=== PATIENT | female | born 1945 | race Caucasian/White ===

== ENCOUNTER → 2019-09-22 | Outpatient (CLI) | payer MEDICARE, OTHER ==
--- NOTE | 2019-09-22 11:05 | Diagnostic Imaging Report ---
PROCEDURE: US right lower extremity venous. TECHNIQUE: Multiple real-time grayscale images were obtained over the right lower extremity in various projections. Additional spectral analysis and color Doppler duplex images were also obtained. INDICATION: Right lower extremity pain and edema. COMPARISON: Non available. FINDINGS: The right common femoral, femoral and popliteal veins are patent by color doppler imaging and without DVT. Visualized proximal aspects of the greater saphenous, deep femoral, posterior tibial and peroneal veins are also patent. All of the evaluated deep venous structures demonstrate normal compressibility and waveform augmentation where applicable. Incidental note of a complicated elongated fluid collection in the popliteal fossa on the medial aspect which could represent a complicated Hayes's cyst or hematoma. IMPRESSION: 1. No right lower extremity deep venous thrombosis (DVT). 2. Complicated fluid collection in the medial aspect of the popliteal fossa most likely represents a Hayes's cyst. Nonemergent MRI of the knee could be performed without contrast for further characterization. Dictated by: Dictated on workstation # [id number]
== END ==
LOC: RAD 09:10
PROVIDERS: ATTEND Podiatrist Foot & Ankle Surgery
DX: M79.661 Pain in right lower leg (principal); R60.0 Localized edema